=== PATIENT | female | born 1960 | race Caucasian/White ===

== ENCOUNTER 2019-11-06 12:13 | Outpatient (CLI) | payer MEDICARE, SELFPAY ==
--- NOTE | 2019-11-06 12:19 | XR_ITS ---
WS: [id number] DEXA (DUAL ENERGY X-RAY ABSORPTIOMETRY) Bone mineral density was performed using a Ztory machine. HISTORY: POST MENOPAUSAL COMPARISON: None available. Lumbar spine BMD (L1-L4): 0.989 g/cm2 T score: -1.6 Z score: 0.3 Total hip BMD: Left: 0.790 g/cm2. T score: -1.7 Z score: -0.3 Right: 0.778 g/cm2. T score: -1.8 Z score: -0.4 10 year probability of a major osteoporotic fracture is 13%. XR/XR DEXA axial skeleton* 47911 IMPRESSION: OSTEOPENIA based upon the WHO classification for females.
== END 2019-11-06 12:14 | disposition home or self-care (01) ==
PROVIDERS: Family Provider Nurse Practitioner Family; PCP Nurse Practitioner Family; Referring Provider Nurse Practitioner Family; Visit Provider Family Medicine
DX: Z78.0 Asymptomatic menopausal state (principal)
CPT/HCPCS: 77080

== ENCOUNTER → 2019-11-09 15:01 | Outpatient (BNVA) | payer MEDICARE, SELFPAY | PROVIDERS: Family Provider Nurse Practitioner Family; PCP Nurse Practitioner Family; Visit Provider Nurse Practitioner Family | DX: M25.571 Pain in right ankle and joints of right foot (principal); J32.9 Chronic sinusitis, unspecified; R60.9 Edema, unspecified | CPT/HCPCS: 73610 ==

== ENCOUNTER → 2019-12-14 11:00 | Outpatient (BNVA) | payer MEDICARE, SELFPAY | PROVIDERS: Visit Provider Nurse Practitioner Family | DX: E03.9 Hypothyroidism, unspecified (principal); M79.671 Pain in right foot; Z13.6 Encounter for screening for cardiovascular disorders; Z90.09 Acquired absence of other part of head and neck | CPT/HCPCS: 80053; 80061; 83735; 84443; 85025 ==

== ENCOUNTER 2020-01-12 12:20 | Outpatient (CLI) | payer MEDICARE, SELFPAY ==
--- NOTE | 2020-01-12 12:28 | XR_ITS ---
WS: [id number] XR foot RT min 3V* [id number] REASON FOR EXAM: right foot pain FINDINGS: The phalanges, metatarsals, tarsals are all normal. The calcaneus was intact no fractures are seen. No calcaneal spurs. XR/XR foot RT min 3V* [id number] IMPRESSION: Negative right foot.
== END 2020-01-12 12:21 | disposition home or self-care (01) ==
PROVIDERS: PCP Family Medicine; Visit Provider Podiatrist Foot & Ankle Surgery
DX: M79.671 Pain in right foot (principal)
CPT/HCPCS: 73630

== ENCOUNTER 2020-01-12 15:02 | Outpatient (CLI) | payer MEDICARE, SELFPAY | END 2020-01-12 15:03 | disposition home or self-care (01) | LOC: SPT 15:02 | PROVIDERS: PCP Family Medicine; Visit Provider Podiatrist Foot & Ankle Surgery | DX: M25.371 Other instability, right ankle (principal); M79.671 Pain in right foot | CPT/HCPCS: 73630; L1902 ==

== ENCOUNTER → 2020-06-03 13:27 | Outpatient (BNVA) | payer MEDICARE, SELFPAY | PROVIDERS: PCP Family Medicine; Visit Provider Nurse Practitioner Family | DX: G89.29 Other chronic pain (principal); M54.5 Low back pain; E03.9 Hypothyroidism, unspecified | CPT/HCPCS: 80053; 84443; 85025 ==

== ENCOUNTER → 2020-06-07 09:48 | Outpatient (BNVA) | payer MEDICARE, SELFPAY | PROVIDERS: PCP Family Medicine; Visit Provider Nurse Practitioner Family | DX: G89.29 Other chronic pain (principal); M54.5 Low back pain; M25.551 Pain in right hip | CPT/HCPCS: 72100; 73502 ==

== ENCOUNTER → 2020-12-05 11:30 | Outpatient (BNVA) | payer MEDICARE, SELFPAY | PROVIDERS: PCP Family Medicine | DX: E03.9 Hypothyroidism, unspecified (principal); Z79.899 Other long term (current) drug therapy; Z13.6 Encounter for screening for cardiovascular disorders | CPT/HCPCS: 80053; 80061; 84443; 85025 ==

== ENCOUNTER 2021-03-29 07:48 | Outpatient (CLI) | payer MEDICARE, SELFPAY ==
--- NOTE | 2021-03-29 07:55 | MR_ITS ---
WS: [id number] MRI BRAIN WITH AND WITHOUT CONTRAST HISTORY: HEADACHE, CHRONIC, NO NEW FEATURES; VISION CHANGES. History of prior meningioma removed 20 y ears ago from behind the LEFT orbit. . COMPARISON: CT head 04/16/2016 TECHNIQUE: Multiplanar imaging performed through the brain with MultiHance 10 ml's IV. No acute infarcts are seen. [place]-white matter differentiation is well preserved. Focal area of enceph alomalacia involving the anterior LEFT frontal lobe with additional prior infarct in the LEFT basal g [place]. Small amount of hemosiderin in the areas of encephalomalacia and prior infarct. Most likely r elated to prior surgery for the meningioma removal. Otherwise very minimal chronic microvascular isch emic disease. No acute blood products. On the postcontrast imaging there is an area of moderate intense enhancement which is irregular shape d within the posterior LEFT orbit extending through the superior orbital fissure to the optic canal. This area of intense enhancement extends along the medial mesh placed from the prior surgery over a l ength of 20 mm, transversely 15 mm through the superior orbital fissure. There is deviation of the LE FT optic nerve medially. There is additional thin linear enhancement extending over length of 17 mm a long the greater wing of the sphenoid also near the surgical site. There is associated encephalomalac ia and volume loss of the LEFT temporal lobe. Mild ex vacuole dilatation of the LEFT lateral ventricle from the volume loss and encephalomalacia on the LEFT. Clivus and pituitary gland are normal. Pituitary gland is mildly prominent extending over a height of 10 mm. Visualized posterior fossa and brainstem are also normal. Postcontrast images are negative for masses or vascular malformations. Dural venous sinuses are normal. Paranasal sinuses: Very tiny air-fluid level in the LEFT maxillary sinus. Mastoid air cells: Normal. Calvarium and scalp: Postoperative changes involving a craniectomy and craniotomy of the LEFT tempora l bone with mesh repair along the lateral wall of the orbit. These findings are better seen on the CT from 04/16/2016. MR/MR head wo/w con [id number] IMPRESSION: 1. Abnormal enhancement involving the posterior LEFT orbit. Moderate soft tiss ue enhancement extends along the superior orbital fissure into the optic canal and is closely associated with the mesh placed from prior meningioma resection. Additional thin linear extradural enhancement along the greater sphenoid wing measuring 17 mm. These areas of enhancement are suspicious for recurrent mening ioma. All areas of enhancement are closely associated with the prior surgery an d mesh placement. There are no prior MRIs to confirm stability or progression o f these changes. 2. Volume loss with encephalomalacia involving the anterior LEFT frontal lobe and prior infarct in the LEFT basal ganglia. 3. Extensive mesh repair involving the lateral wall of the LEFT orbit with tem poral craniotomy and craniectomy sites. 4. Mild deviation of the LEFT optic nerve medially. This is probably related t o prior surgery. 5.
[2021-03-29 08:31] LABS: Blood Urea Nitrogen 5 mg/dL (8-23)
[2021-03-29 08:32] LABS: Glomerular Filtration Rate 72.9 mL/min (90-130)
[2021-03-29] MEDS: gadobenate dimeglumine 20 mL vial IV (08:37)
== END 2021-03-29 07:49 | disposition home or self-care (01) ==
PROVIDERS: PCP Family Medicine; Visit Provider Internal Medicine
DX: H54.7 Unspecified visual loss (principal); R51.9 Headache, unspecified; G93.89 Other specified disorders of brain
CPT/HCPCS: 70553; 82565; 84520; A9577